=== PATIENT | male | born 1975 | race Caucasian/White ===

== ENCOUNTER 2016-05-30 14:52 | Emergency (ER) | payer OTHER ==
[2016-05-30 15:09] VITALS: BP 143/84; PULSE 72; RESP 18; TEMP 97.7; O2SAT 95
--- NOTE | 2016-05-30 15:37 | UCPHY ---
H & P Time Seen by Provider: 05/30/16 15:16 Patient Type: New HPI/ROS: On this patient sustained injury to his left thumb metacarpophalangeal joints yesterday while skiing at [employer]. Another skier collided with him and it forced his pole against his thumb causing forced AB duction. Reports the pain was initially mild but has become moderate with movement since that time associated with mild swelling to the affected area. At baseline the pain is mild when he is not moving. He notes no other exacerbating or alleviating factors. He did not fall from the collision he denies any other injuries. ROS: No numbness. No lacerations. No other injuries. 5 point ROS is otherwise negative. Past Medical/Surgical History: Otherwise healthy Smoking Status: Never smoked Physical Exam: Physical Exam Vital signs are normal. General: No acute distress HEENT: Atraumatic. Eyes: Pupils equal and react to light. Extraocular motions are intact. Lungs: No respiratory distress. Cardiac: Brisk capillary refill is intact throughout. Pulses are 2+ and symmetric in the affected extremity. Extremities: Atraumatic and normal except for left thumb Left thumb is notable for mild swelling to the metacarpophalangeal joint circumferentially with tenderness at the ulnar collateral ligament. With AB duction he has increased pain in the area but there is no significant laxity. No ecchymosis. No other hand tenderness or swelling. No wrist swelling or tenderness. Extremities are otherwise atraumatic Skin: No rash or pallor. Neuro: Alert and oriented x3 with no sensorimotor deficits. Constitutional: Initial Vital Signs Temperature (C) 36.5 C 05/30/16 15:06 Heart Rate 72 05/30/16 15:06 Respiratory Rate 18 05/30/16 15:06 Blood Pressure 143/84 H 05/30/16 15:06 O2 Sat (%) 95 05/30/16 15:06 O2 Delivery Mode Room Air Allergies/Adverse Reactions: ibuprofen Allergy (Verified 05/30/16 15:06) Home Medications: Medication Instructions Recorded NK [No Known Home Meds] 05/30/16 MDM/Departure - MDM Diagnostics: Thumb x-ray: Negative for fracture by my interpretation ED Course/Re-evaluation: Patient is placed in Velcro thumb spica by our nurse and is neurovascularly intact post splint application. I counseled him regarding "skier's thumb" sprain. - Depart Clinical Impression: Skier's thumb Qualifiers: Encounter type: initial encounter Laterality: left Qualifier Code: (S63.642A) Sprain of metacarpophalangeal joint of left thumb, initial encounter Instructions: Skier's Thumb (ED) Additional Instructions: Diagnosis: Skier's thumb (thumb sprain) Plan: Thumb splint when up and about until symptoms improve (likely over the next 10-14 days) Gently stretch the thumb daily. Try Naprosyn anti-inflammatory 2 tabs 2 times per day for pain. Tylenol in addition if needed. Return for any significant worsening despite the treatment plan. Referrals: Jonnathan Bales DO [Primary Care Provider] - As per Instructions - PQRS PQRS Measurement: NA
--- NOTE | 2016-05-30 16:31 | DX ---
Left Thumb, Three Views Indication: Hyperextension injury. Pain at the 1st metacarpophalangeal joint. Technique: AP, lateral, and oblique views. Findings: The thumb is anatomically aligned. No acute fracture or avulsion injury at the first MCP joint. The trapezium and trapezoid bone have mild overlap artifact at the base on the AP view. Impression: Negative. No acute fracture or evidence of avulsion injury. Comment: The case was discussed with Dr. Eriberto Porter.
== END 2016-05-30 16:01 | disposition home or self-care (01) ==
LOC: CED 14:52
PROC: 2W3FX1Z Immobilization of Left Hand using Splint (ICD-10-PCS; principal; 2016-05-30)
DX: S63.642A Sprain of metacarpophalangeal joint of left thumb, initial encounter (principal); W21.89XA Striking against or struck by other sports equipment, initial encounter; Y93.23 Activity, snow (alpine) (downhill) skiing, snowboarding, sledding, tobogganing and snow tubing; Y92.838 Other recreation area as the place of occurrence of the external cause
CPT/HCPCS: 73140-PO; G0463-PO; L3807